=== PATIENT | female | born 1975 | race Caucasian/White ===

== ENCOUNTER 2018-01-08 02:24 | Emergency (ER) | payer MEDICAID | END 2018-01-08 04:40 | disposition home or self-care (01) | LOC: FTE 02:24 | DX: H10.32 Unspecified acute conjunctivitis, left eye (principal); F41.9 Anxiety disorder, unspecified; J06.9 Acute upper respiratory infection, unspecified; E11.9 Type 2 diabetes mellitus without complications | CPT/HCPCS: 99283; Z7502 ==

== ENCOUNTER 2018-07-18 11:28 | Emergency (ER) | payer MEDICAID ==
[2018-07-18] MEDS: ACETAMINOPHEN 500 MG TAB PO (14:30)
== END 2018-07-18 16:38 | disposition home or self-care (01) ==
LOC: FTE 11:28
DX: S09.90XA Unspecified injury of head, initial encounter (principal); S19.9XXA Unspecified injury of neck, initial encounter; E11.9 Type 2 diabetes mellitus without complications; R51 Headache; V89.2XXA Person injured in unspecified motor-vehicle accident, traffic, initial encounter
CPT/HCPCS: 70450; 71045; 72040; 73030-RT; 99284-25

== ENCOUNTER 2018-12-12 15:30 | Emergency (ER) | payer MEDICAID ==
[2018-12-12 18:49] LABS: URINE BLOOD (Dip) POC 3+ (NEGATIVE); URINE GLUCOSE (Dip) POC Negative (NEGATIVE); URINE KETONES (Dip) POC Negative (NEGATIVE); URINE LEUKOCYTE EST (Dip) POC Negative (NEGATIVE); URINE NITRITE (Dip) POC Negative (NEGATIVE); URINE TOTAL PROTEIN POC Negative (NEGATIVE)
[2018-12-12] MEDS: IBUPROFEN 600 MG TAB PO (19:33)
[2018-12-12] MEDS: ACETAMINOPHEN 325 MG TAB PO (19:33)
== END 2018-12-12 20:27 | disposition home or self-care (01) ==
LOC: FTE 20:27
DX: N93.8 Other specified abnormal uterine and vaginal bleeding (principal); E11.9 Type 2 diabetes mellitus without complications; D25.9 Leiomyoma of uterus, unspecified
CPT/HCPCS: 76830; 76856; 81003; 81025; 99284-25